=== PATIENT | female | born 1965 | race Hispanic/Latino ===

== ENCOUNTER 2019-03-02 10:35 | Emergency (ER) | payer MEDICAID ==
[2019-03-02 11:35] LABS: BASOPHILS % (AUTO) 0.7 % (0.0-5.0); EOSINOPHILS % (AUTO) 1.5 % (0.0-8.0); HEMATOCRIT 41.3 % (36-48); LYMPHOCYTES % (AUTO) 17.7 % (21.0-51.0); MEAN CORPUSCULAR HEMOGLOBIN 30.2 pg (27.0-33.0); MEAN CORPUSCULAR HGB CONC 33.8 g/dL (32.0-36.0); MEAN CORPUSCULAR VOLUME 89.3 fL (79-99); MONOCYTES % (AUTO) 6.9 % (3.0-13.0); NEUTROPHILS % (AUTO) 73.2 % (40.0-77.0); PLATELET COUNT (AUTO) 387 K/uL (130-400); RED BLOOD CELL COUNT(AUTO) 4.63 MIL/uL (4.00-5.50); RED CELL DISTRIBUTION WIDTH 12.8 % (11.0-15.5)
[2019-03-02 11:42] LABS: CREATININE 0.7 mg/dL (0.5-1.5); POTASSIUM 3.1 mmol/L (3.5-5.1)
[2019-03-02 11:47] LABS: ALBUMIN 3.9 g/dL (3.5-5.0); BILIRUBIN,TOTAL 0.1 mg/dL (0.2-1.0); TOTAL PROTEIN, SERUM 7.9 g/dL (6.0-8.3)
[2019-03-02 12:33] LABS: APPEARANCE,URINE Clear (CLEAR); BILIRUBIN,URINE Negative (NEGATIVE); COLOR,URINE Yellow (YELLOW); GLUCOSE, URINE (UA) Negative (NEGATIVE); KETONES,URINE Negative (NEGATIVE); LEUKOCYTE ESTERASE ,URINE Trace (NEGATIVE); NITRATE,URINE Negative (NEGATIVE); OCCULT BLOOD,URINE Negative (NEGATIVE); PH,URINE 7.5 (5.0-8.0); PROTEIN,URINE POS 1+ mg/dL (NEGATIVE); UROBILINOGEN,URINE 0.2 mg/dL (0.2-1.0)
[2019-03-02 13:10] LABS: BACTERIA,URINE Rare /HPF (None Seen); RBC,URINE 0-1 /HPF (0-1); SQUAMOUS EPITHELIAL CELL,UR Rare /HPF (0-2); WBC,URINE 0-1 /HPF (0-1)
[2019-03-02] MEDS ORDERED: AMMONIA 1 EA AMP IH ONE (13:55)
== END 2019-03-02 14:20 | disposition home or self-care (01) ==
LOC: EDH 10:35
DX: G44.209 Tension-type headache, unspecified, not intractable (principal); F41.9 Anxiety disorder, unspecified; I10 Essential (primary) hypertension; E78.5 Hyperlipidemia, unspecified; Z79.899 Other long term (current) drug therapy
CPT/HCPCS: 36415; 80053; 81001; 85025; 99284; J3490

== ENCOUNTER 2025-03-08 11:37 | Emergency (ER) | payer MEDICARE ==
[~2025-03-08] VITALS: Ht 162.6 cm; Wt 72.6 kg
--- NOTE | 2025-03-08 11:58 | ERN ---
ED Note History of Present Illness Stated Complaint: SEIZURE Chief Complaint: Seizure Time Seen by MD: 11:53 Dictation: Patient is a 59-year-old female coming to the emergency room via EMS from a local laboratory with complaints of having a witnessed seizure that lasted 3-5 minutes. She did not fall, she was sitting in the chair. The labs staff were able to keep her in the chair and she did not go to the ground. EMS was called and she was transported. She is currently alert and oriented times 3-4 speech is clear. 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 She is on Lamictal and Tegretol. Patient has a large bottle of Lamictal however Tegretol was down to one 300 mg capsule in the bottle. No complaints of injuries pain headache. Allergies: Coded Allergies: No Known Allergies (Unverified Allergy, Unknown, 03/02/19) Past Medical History History: Not Applicable RN Note Reviewed/Agreed w/PFSH: Yes Review of System Dictation CONSTITUTIONAL: Negative except for HPI HEAD/FACE: Negative except for HPI EENT: Negative except for HPI RESPIRATORY: Negative except for HPI GASTROINTESTINAL/ABDOMINAL: Negative except for HPI GENITOURINARY: Negative except for HPI MUSCULOSKELETAL: Negative except for HPI INTEGUMENTARY: Negative except for HPI NEUROLOGICAL/PSYCH: Negative except for HPI generalized seizure 3-5 minutes HEMATOLOGIC/LYMPHATIC: Negative except for HPI All Systems Negative, Except as noted above. 13 point review of systems assessed and all negative except for above. Initial Vital Sign VS Vital Signs Date Time Temp Pulse Resp B/P (MAP) Pulse Ox O2 Delivery O2 Flow Rate FiO2 03/08/25 11:52 98.4 106 16 169/87 94 Room Air 0 03/08/25 12:30 21 Physical Exam Dictation Vital Signs reviewed General Appearance: Alert, oriented x 3, no acute distress, well developed, nourished. No complaints of pain Head and Face: non-traumatic. Eyes: PERRL, pink conjunctivas, eyelid no trauma, anterior chamber with arcus senilis. Ears: Pinnas intact and no signs of trauma or erythema ear canals clear and no discharge TM no erythema Nose: No discharge, no bleeding. Oropharynx: Mouth normal, tongue pink, pharynx clear,no erythema, tonsils no exudates, no abscesses noted, mucous membrane moist Neck: Supple, non-tender, no thyromegaly, no masses, no JVD, no bruits Breast:Deferred Chest:No tenderness, no crepitus, no paradoxical movement, no retractions Lungs:Clear, well-ventilated, symmetric, no rales, no wheezing, no rhonchi, no stridor, good breath sounds bilaterally Heart: Regular rate, regular rhythm, no murmur, no gallops Vascular: no peripheral edema, Abdomen: Soft, positive bowel sounds, nondistended, no guarding, nontender, no rebound, no masses no hepatomegaly, no splenomegaly, no Bose's sign, no hernias. Rectal: Deferred Genital: Deferred Neurological: Normal speech, motor function intact, sensory function intact Musculoskeletal: Neck nontender, full range of motion, back nontender, full r esthela of motion, Extremities: nontender, full range of motion Skin: Color pink, dry, no turgor, no rash, no lacerations, no abrasions, no contusions. Lymphatic: Deferred Results (Laboratory/Radiology) Laboratory/Radiology Laboratory Tests Test 03/08/25 12:11 03/08/25 12:39 White Blood Count 7.2 K/uL (4.8-10.8) Red Blood Count 5.04 MIL/uL (4.00-5.50) Hemoglobin 15.1 g/dL (12.0-16.0) Hematocrit 46.9 % (36-48) Mean Corpuscular Volume 93.1 fL (79-99) Mean Corpuscular Hemoglobin 30.0 pg (27.0-33.0) Mean Corpuscular Hemoglobin Concent 32.2 g/dL (32.0-36.0) Red Cell Distribution Width 12.4 % (11.0-15.5) Platelet Count 399 K/uL (130-400) Mean Platelet Volume 9.0 fL (7.5-10.5) Immature Granulocyte % (Auto) 1.0 % (0-1) Neutrophils (%) (Auto) 82.6 % (40.0-77.0) H Lymphocytes (%) (Auto) 6.8 % (21.0-51.0) L Monocytes (%) (Auto) 7.8 % (3.0-13.0) Eosinophils (%) (Auto) 1.1 % (0.0-8.0) Basophils (%) (Auto) 0.7 % (0.0-5.0) Neutrophils # (Auto) 5.9 K/uL (1.8-7.7) Lymphocytes # (Auto) 0.5 K/uL (1.0-4.8) L Monocytes # (Auto) 0.6 K/uL (0.1-1.0) Eosinophils # (Auto) 0.08 K/uL (0.00-0.70) Basophils # (Auto) 0.05 K/uL (0.00-0.20) Absolute Immature Granulocyte (auto 0.07 K/uL (0-1) Nucleated Red Blood Cells 0.0 % (0.0-0.19) White Cell Morphology Comment See comments Sodium Level 138 mmol/L (136-145) Potassium Level 3.9 mmol/L (3.5-5.1) Chloride Level 102 mmol/L (101-111) Carbon Dioxide Level 27 mmol/L (21-32) Blood Urea Nitrogen 9 mg/dL (7-18) Creatinine 0.5 mg/dL (0.5-1.0) Glomerular Filtration Rate Calc 107 mL/min (>90) Random Glucose 134 mg/dL (70-105) H Total Calcium 8.9 mg/dL (8.5-10.1) Troponin I High Sensitivity 8 ng/L (4-50) Carbamazepine (Tegretol) Level 10.4 mcg/mL (4.0-12.0) Labs Reviewed?: Yes EKG: (+) NSR EKG Comment: 1218/EKG NORMAL SINUS RHYTHM/HEART RATE 92/AXIS NORMAL/NO ECTOPY ED Course ED Course Orders Procedure Category Date Status Time Carbamazepine LAB 03/08/25 Complete (Tegretol) 11:53 Diazepam 5mg Tab PHA 03/08/25 Complete (Valium 5 Mg Tab) 12:00 Cbc With Differential LAB 03/08/25 Complete 11:53 Troponin I High LAB 03/08/25 Complete Sensitivity 11:53 Urinalysis Profile LAB 03/08/25 Logged 11:53 12 Lead Ekg Tracing- EKG 03/08/25 Complete Technical 11:53 Basic Metabolic Panel LAB 03/08/25 Complete 11:53 Seizure Precautions CPOE 03/08/25 Transmitted 11:58 Current Medications Medications (Trade) Dose Ordered Sig/Fracisco Route PRN Reason Start Time Stop Time Status Last Admin Dose Admin Diazepam (VALium 5 mg TAB) 5 mg ONCE ONCE PO 03/08/25 12:00 03/08/25 12:02 DC 03/08/25 12:16 Vital Signs Date Time Temp Pulse Resp B/P (MAP) Pulse Ox O2 Delivery O2 Flow Rate FiO2 03/08/25 14:10 90 20 167/79 99 Room Air* 0 21 03/08/25 12:30 92 20 153/70 98 Room Air* 0 21 03/08/25 11:52 98.4 106 16 169/87 94 Room Air 0 1440/SPOKE WITH SISTER AT LENGTH WHO IS AT THE BEDSIDE. SHE IS THE PATIENT'S GUARDIAN AND STATES PATIENT WENT TODAY FOR FASTING LABS WITH HER PRIMARY CARE DOCTOR. SHE SAID SHE HAS ALREADY DONE THIS SEVERAL TIMES WHERE SHE GOES IN FASTING AND THEN HAS A SEIZURE SINCE SHE HAS NOT EATEN. SHE SEES A LOCAL DOCTOR, DR. TUCKER FOR NEUROLOGY SHE IS COMPLIANT WITH HER LAMICTAL AND TEGRETOL. NO SEIZURE ACTIVITY NOTED HEART Score Response (Comments) Value History: Moderate suspicion (+1) 1 Age: 45-65yrs (+1) 1 Risk Factors: 1-2 risk factors (+1) 1 Initial Troponin: Normal limit (0) 0 Total 3 Medical Decision Making MDM MDM: DIFFERENTIAL DIAGNOSIS: ACS/AMI/ELECTROLYTE IMBALANCE/DEHYDRATION/SEIZURE/SUBTHERAPEUTIC CONVULSING LEVEL RATIONALE: TESTS CONSIDERED AND ORDERED SECONDARY TO SHARED DECISION MAKING INCLUDE: EKG/LABS PREVIOUS OUTSIDE RECORDS REVIEWED: OLD ER VISITS. RISK OF COMPLICATION AND/OR MORBIDITY OR MORTALITY OF PATIENT MANAGEMENT: NONE MEDICATIONS-PER MEDICATION RECONCILIATION NEED FOR HOSPITALIZATION: PATIENT DOES NOT MEET CRITERIA FOR HOSPITALIZATION. NO NEED FOR EMERGENCY MAJOR/MINOR SURGERY: NO THERE ARE NO SOCIAL CONCERNS WITH THIS PATIENT. PRESCRIPTION DRUG MANAGEMENT NONE TEGRETOL PRESCRIPTIONS WILL INCLUDE SYMPTOMATIC CARE PATIENT'S PRIOR EXTERNAL MEDICAL RECORDS FROM OTHER ER VISITS WERE REVIEWED BY ME INDICATED. PRIOR TESTING AND RESULTS FROM PREVIOUS VISITS WERE REVIEWED. PRIOR TESTS WERE TAKEN INTO ACCOUNT WITH MEDICAL DECISION MAKING AND RESOURCE UTILIZATION, INDEPENDENT HISTORIAN/HISTORIANS WERE USED TO OBTAIN COMPLETE MEDICAL HISTORY. I INDEPENDENTLY INTERPRETED THE TEST THAT WERE PERFORMED, RESULTS WERE REVIEWED BY ME AND CONSIDERED FINDINGS ON RADIOLOGY IF ORDERED. MEDICAL MANAGEMENT AND EXAMINATION INTERPRETATION DISCUSSIONS WERE HAD BY ME WITH OTHER QUALIFIED HEALTHCARE PROFESSIONALS INDICATED FOR THE PATIENT'S CARE. DX & DISP Disposition: Discharge Departure Impression: Primary Impression: Seizure Additional Impressions: Hyperglycemia, Anticonvulsant therapeutic drug level, Benign hypertension Condition: Stable Scripts Carbamazepine (Tegretol) 200 Mg Tablet 1 TAB PO BID for 30 Days, #60 TAB 0 Refills Prov: JEFFERY SAM NP 03/08/25 Additional Instructions: FOLLOW-UP WITH PRIMARY CARE PROVIDER IN 1 TO 2 DAYS. TAKE MEDICATIONS DIRECTED HERE IN THE EMERGENCY ROOM. OKAY TO CONTINUE HOME MEDICATIONS UNLESS OTHERWISE DISCUSSED DURING YOUR VISIT IN THE EMERGENCY ROOM TODAY. RETURN TO YOUR NEAREST EMERGENCY ROOM IF SYMPTOMS WORSEN OR IF THERE IS NO IMPROVEMENT. CALL 911 IF YOU NEED IMMEDIATE ASSISTANCE. TAKE TYLENOL OR MOTRIN [id number] NEEDED AND IF NO CONTRAINDICATIONS ARE PRESENT. INCREASE ORAL HYDRATION. A WOUND CULTURE OR URINE CULTURE WAS ORDERED HERE IN THE EMERGENCY ROOM DEPARTMENT PLEASE FOLLOW-UP WITH PRIMARY CARE PROVIDER AND ADVISE THEM TO GET REPEAT PORTS FROM OUR FACILITY. IF YOU HAD ANY YARELI WRAP/SPLINTS THAT WERE APPLIED HERE, PLEASE DO NOT REMOVE THEM UNTIL YOU SEE YOUR PRIMARY CARE OR SPECIALTY. PLZE GIVE PATIENT HER BLOOD PRESSURE MEDICATION WHEN SHE GETS HOME. FOLLOW UP WITH YOUR PRIMARY CARE DOCTOR IN THE NEXT 1-2 DAYS. FEED [place] A GOOD MEAL WHEN SHE GETS HOME. Referrals: AUSTEN HODGE (PCP) I have reviewed the case, and I agree with, Diagnosis and Plan JEFFERY SAM NP Mar 08, 2025 11:58
--- NOTE | 2025-03-08 12:04 | NUR ---
FACESHEET PROVIDED TO EMT
--- NOTE | 2025-03-08 12:10 | NUR ---
SEIZURE PRECAUTIONS PLACED ON ER STRETCHER FOR PT AT THIS TIME. FAMILY AT BEDSIDE. CALL LIGHT WITHIN REACH.
[2025-03-08 12:16] LABS: IMMATURE GRANULOCYTE ABSOLUTE 0.07 K/uL (0-1); NUCLEATED RED BLOOD CELLS 0.0 % (0.0-0.19); PLATELET COUNT (AUTO) 399 K/uL (130-400); RED BLOOD CELL COUNT(AUTO) 5.04 MIL/uL (4.00-5.50); RED CELL DISTRIBUTION WIDTH 12.4 % (11.0-15.5); WHITE BLOOD COUNT (AUTO) 7.2 K/uL (4.8-10.8)
[2025-03-08] MEDS: diazePAM 5 MG TAB PO ONE (12:16)
--- NOTE | 2025-03-08 12:24 | EKG ---
[facility] Test Date: 2025-03-08 Test Time: 12:18:50 Pat Name: GILBERTO YAN Department: [facility] Room: Gender: F Applications Programmer: [id number] Requested By: JEFFERY SAM Order Number: [id number] Reading MD: Jayesh Xiao Measurements Intervals [place] Rate: 92 P: 47 CT: 163 QRS: 29 QRSD: 86 T: 86 QT: 381 QTc: 472 Interpretive Statements Sinus rhythm No previous ECG available for comparison Electronically Signed On 03-08-2025 21:36:01 CDT by Jayesh Xiao Please click the below link to view image of tracing.
[2025-03-08 12:53] LABS: CREATININE 0.5 mg/dL (0.5-1.0); GLOMERULAR FILTR. RATE CALC 107.0 mL/min (>90); GLUCOSE,RANDOM 134.0 mg/dL (70-105); SODIUM SERUM 138.0 mmol/L (136-145); UREA NITROGEN, BLOOD 9.0 mg/dL (7-18)
[2025-03-08] MEDS ORDERED: CARB200T PO (14:44)
[2025-03-08 14:48] VITALS: BP 162/73; PULSE 89; RESP 17; TEMP 98.2; O2SAT 99
== END 2025-03-08 14:50 | disposition home or self-care (01) ==
LOC: EDH 11:37
DX: R56.9 Unspecified convulsions (principal); R73.9 Hyperglycemia, unspecified; I10 Essential (primary) hypertension; Z79.899 Other long term (current) drug therapy
CPT/HCPCS: 36415; 80048; 80156; 84484; 85025; 93005; 99284